=== PATIENT | female | born 1975 | race Asian ===

== ENCOUNTER 2016-06-29 11:08 | Emergency (ER) | payer OTHER ==
[2016-06-29 12:17] LABS: PH,URINE 6.5 (5.0-8.0); URINE BILIRUBIN NEGATIVE (NEGATIVE); URINE BLOOD 1+ (NEGATIVE); URINE GLUCOSE (UA) NEGATIVE (NEGATIVE); URINE LEUKOCYTE ESTERASE NEGATIVE (NEGATIVE); URINE NITRITE NEGATIVE (NEGATIVE); URINE PROTEIN 1+ (NEGATIVE); URINE UROBILINOGEN NORMAL (0-1 mg/dl)
[2016-06-29 12:19] LABS: URINE APPEARANCE CLEAR; URINE COLOR YELLOW
[2016-06-29 12:20] LABS: HCG,QUALITATIVE URINE NEGATIVE
[2016-06-29 12:26] LABS: URINE BACTERIA RARE; URINE EPITHELIAL CELLS RARE /hpf; URINE WBC NEG /hpf
[2016-06-29] MEDS ORDERED: METOCLOPRAMIDE HCL 5 MG/ML 2ML VIAL ONE (12:42)
[2016-06-29] MEDS ORDERED: DIPHENHYDRAMINE HCL 50 MG/1 ML VIAL ONE (12:42)
[2016-06-29] MEDS ORDERED: LABETALOL HCL 5 MG/ML 20ML VIAL IV ONE (12:43)
[2016-06-29 12:58] LABS: ABSOLUTE NEUTROPHIL COUNT 11.2 K/mm3 (1.8-7.7); BASO # 0.1 K/mm3 (0.0-0.2); BASO % 0.5 % (0.2-1.0); EOS # 0.1 (0.0-0.5); EOS % 0.4 % (0.9-2.9); IMM NEUT% 0.3 % (0-1); LYMPH # 1.9 (1.0-4.8); LYMPH % 13.9 % (15-45); MEAN CELL VOLUME 85.5 fl (81.0-99.0); MEAN CORPUSCULAR HEMOGLOBIN 28.5 pg (27.0-31.0); MEAN CORPUSCULAR HGB CONC 33.3 g/dl (33.0-37.0); MEAN PLATELET VOLUME 12.8 fl (7.4-10.4); MONO # 0.5 (0.0-0.8); MONO % 3.4 % (4-12); NEUT % 81.5 % (43-75); PLATELET COUNT 203 K/mm3 (130-400); RED CELL DISTRIBUTION WIDTH 14.4 % (11.5-14.5)
--- NOTE | 2016-06-29 13:12 | CT ---
Exam: CT head without contrast COMPARISON: None INDICATION: Hypertension, headache. TECHNIQUE: CT examination of the head was obtained without contrast. FINDINGS: There is no acute intracranial hemorrhage. There is no abnormal intra or extra-axial fluid collection. There is no edema, mass effect or midline shift. Ventricles are normal in size. The visualized paranasal sinuses and mastoid air cells are well aerated. IMPRESSION: No acute intracranial abnormality. Report was uploaded to the EMR at 1308 hours 06/29/2016.
[2016-06-29 13:25] LABS: ALB/GLOB RATIO 1.4 (>1.0); ALBUMIN 4.4 gm/dL (3.5-5.7); CALCIUM 9.3 mg/dL (8.6-10.3)
[2016-06-29] MEDS ORDERED: KETOROLAC TROMETHAMINE 30 MG/ML 1 ML VIAL ONE (13:44)
== END 2016-06-29 14:09 | disposition home or self-care (01) ==
LOC: ED 11:08
DX: I10 Essential (primary) hypertension (principal); R51 Headache; R10.9 Unspecified abdominal pain
CPT/HCPCS: 81025; 85025; 80053; 81001; 70450; 96375 ×3; 99284 ×2; 96374; J1200; J2765; J1885